=== PATIENT | male | born 1980 | race Caucasian/White ===

== ENCOUNTER → 2020-06-12 | Outpatient (CLI) | payer OTHER ==
[~2020-06-12] MED LIST: ANAPROX DS550 MG PO; TESSALON PERLE100 MG PO; TOBRADEX 0.1%-0.5 ML OPH; TYLENOL325 M1 PO; VICODIN 5/500 505 MG PO
== END | disposition home or self-care (01) ==
LOC: COVID19 15:59
PROVIDERS: ATTEND Student in an Organized Health Care Education/Training Program
DX: U07.1 COVID-19 (principal)

== ENCOUNTER 2020-06-16 10:40 | Emergency (ER) | payer OTHER ==
[~2020-06-16] VITALS: Ht 185.4 cm; Wt 95.3 kg
[~2020-06-16 10:40] MED LIST changes: -TESSALON PERLE100 MG PO; -TYLENOL325 M1 PO
[2020-06-16 11:17] LABS: BASO % 0.5 % (0.0-1.0); EOS # 0.2 10*3/uL (0.0-0.4); EOS % 4.7 % (1.0-4.0); HEMATOCRIT 47.5 % (42.0-52.0); LYMPH % 25.3 % (27.0-41.0); MEAN CELL VOLUME 85.9 fl (80.0-94.0); MEAN CORPUSCULAR HGB 29.3 pg (27.0-31.0); MEAN CORPUSCULAR HGB CONC 34.1 g/dl (33.0-37.0); MEAN PLATELET VOLUME 10.5 fl (9.6-12.3); MONO # 0.5 10*3/uL (0.1-1.0); MONO % 13.3 % (3.0-9.0); NEUT # 2.1 10*3/uL (2.3-7.9); NEUT % 55.9 % (47.0-73.0); PLATELET COUNT AUTOMATED 212 10*3/uL (130-400); RED BLOOD COUNT 5.53 10*6/uL (4.50-5.90); RED CELL DISTRI WIDTH 11.9 % (0-14.5); WHITE BLOOD COUNT 3.8 10*3/uL (4.8-10.8)
[2020-06-16 11:28] LABS: ACT PARTIAL THROMBO TIME 26.6 SECONDS (20.0-32.1)
[2020-06-16 11:35] LABS: ALBUMIN 3.8 gm/dl (3.1-4.5); ALKALINE PHOSPHATASE 82 U/L (45-117); BUN 14 mg/dl (7-24); CHLORIDE 107 mmol/L (98-107); CPK 84 U/L (39-308); CREATININE 0.88 mg/dL (0.70-1.30); POTASSIUM 4.1 mmol/L (3.5-5.1); SGOT/AST 17 IU/L (3-35); SGPT/ALT 27 U/L (12-78); SODIUM 140 mmol/L (136-145); TOTAL PROTEIN 7.4 gm/dL (6.4-8.2); TROPONIN I < 0.015 ng/ml (<0.045)
[2020-06-16] MEDS ORDERED: TYLENOL325 M1 PO (19:49)
[2020-06-16] MEDS ORDERED: TESSALON PERLE100 MG PO (19:49)
== END 2020-06-16 12:06 | disposition home or self-care (01) ==
LOC: ED 10:40
PROVIDERS: Emergency Medicine
DX: U07.1 COVID-19 (principal); R07.89 Other chest pain

== ENCOUNTER 2022-12-15 21:38 | Emergency (ER) | payer OTHER ==
[~2022-12-15] VITALS: Ht 182.8 cm; Wt 99.8 kg
[~2022-12-15 21:38] MED LIST changes: +TESSALON PERLE100 MG PO; +TYLENOL325 M1 PO
[2022-12-15 23:49] LABS: BASO % 0.3 % (0.0-1.0); EOS % 0.4 % (1.0-4.0); HEMATOCRIT 44.9 % (42.0-52.0); LYMPH # 0.4 10*3/uL (1.3-4.4); LYMPH % 3.6 % (27.0-41.0); MEAN CELL VOLUME 85.7 fl (80.0-94.0); MEAN CORPUSCULAR HGB 29.6 pg (27.0-31.0); MEAN CORPUSCULAR HGB CONC 34.5 g/dl (33.0-37.0); MEAN PLATELET VOLUME 10.1 fl (9.6-12.3); MONO % 9.6 % (3.0-9.0); NEUT # 8.6 10*3/uL (2.3-7.9); NEUT % 85.7 % (47.0-73.0); PLATELET COUNT AUTOMATED 189 10*3/uL (130-400); RED BLOOD COUNT 5.24 10*6/uL (4.50-5.90); WHITE BLOOD COUNT 10.1 10*3/uL (4.8-10.8)
[2022-12-16 00:14] LABS: ALKALINE PHOSPHATASE 104 U/L (46-116); BUN 9 mg/dl (9-23); CHLORIDE 103 mmol/L (98-107); POTASSIUM 3.6 mmol/L (3.4-5.1); SGPT/ALT 28 U/L (10-49); TOTAL PROTEIN 6.5 gm/dL (6.0-8.0)
== END 2022-12-16 06:10 | disposition home or self-care (01) ==
LOC: ED 21:38
PROVIDERS: Emergency Medicine
DX: K52.9 Noninfective gastroenteritis and colitis, unspecified (principal); R11.10 Vomiting, unspecified; B34.9 Viral infection, unspecified; Z90.49 Acquired absence of other specified parts of digestive tract; Z98.890 Other specified postprocedural states; Z20.822 Contact with and (suspected) exposure to COVID-19